=== PATIENT | male | born 1975 | race Caucasian/White ===

== ENCOUNTER 2017-08-01 11:55 | Day surgery (SDC) | payer BC ==
--- NOTE | 2017-03-13 21:05 | HP ---
HISTORY AND PHYSICAL: DATE OF SURGERY/ADMISSION: 03/21/17 SURGEON: Fern Ramesh MD * (DICTATED BY VANIA ISAAC) PROCEDURES: Right knee arthroscopy with partial medial meniscectomy, possible chondroplasty, possible synovectomy. CHIEF COMPLAINT: Right knee pain. HISTORY OF PRESENT ILLNESS: Mr. Gaona is a 41-year-old gentleman with complaints of right knee pain, which started approximately 2 years ago, it has been getting progressively worse, especially over the last 6 months. It is associated with catching, locking and popping along the medial joint line and an MRI of the right knee shows a postero-medial meniscal tear as well as some mild patellofemoral arthritis. He has elected to proceed with the right knee arthroscopy with partial medial meniscectomy, possible chondroplasty and possible synovectomy. PAST MEDICAL HISTORY: 1. Diabetes. 2. Hypothyroidism. 3. Sleep apnea. PAST SURGICAL HISTORY: 1. Gastric bypass. 2. Right carpal tunnel release. CURRENT MEDICATIONS: 1. Gabapentin 400 mg twice a day. 2. Wellbutrin. 3. Vitamin D3. 4. Metformin 500 mg daily. 5. Naproxen 500 mg twice daily as needed. 6. Fluoxetine 40 mg daily. 7. Levothyroxine 175 mcg daily. ALLERGIES: To PENICILLIN and AMBIEN. FAMILY HISTORY: Diabetes and hypertension. SOCIAL HISTORY: He is a 41-year-old gentleman, who lives with his . He is a high school chemistry teacher. He denies use of smoking, drugs or alcohol. He did quit tobacco in 2006. REVIEW OF SYSTEMS: A complete 14-point review of systems is reviewed with the patient, and it was positive for diabetes and thyroid disease. He denies history of DVT, PE or anesthesia problems. PHYSICAL EXAMINATION GENERAL: He is a well-nourished male, in no acute distress. VITAL SIGNS: He stands 5 feet 8 inches tall, weighs 245 pounds. His blood pressure is 123/83, his heart rate is 80. HEENT: Normocephalic, atraumatic. NECK: Supple. No palpable lymph nodes. PULMONARY: Lungs are clear to auscultation bilaterally. CARDIAC: Regular rate and rhythm. Strong S1 and S2. ABDOMEN: Soft, nontender, nondistended. NEUROLOGIC: He is alert and oriented x3. Cranial nerves II through XII are intact. MUSCULOSKELETAL: Right lower extremity, skin is intact. There are no open wounds or abrasions. He is tender to palpation along the medial joint line and MCL, positive Apley's and Gurpreet's. 5 to 130 degrees of flexion with patellofemoral crepitus and pain. No varus or valgus instability. His lower extremity muscle group strengths are intact at 5/5. He has 2+ dorsalis pedis pulses and intact sensation. ASSESSMENT AND PLAN: Mr. Gaona is a 41-year-old gentleman with complaints of right knee pain and an MRI showed a right knee posteromedial meniscal tear. He has failed conservative management and has elected to proceed with a right knee arthroscopy with partial medial meniscectomy, possible chondroplasty, possible synovectomy. The surgery is scheduled for 03/21/[address] Ramesh discussed the risks and the benefits of the surgery at today's visit and all of his questions were answered. He will follow up with Dr. Ramesh 10 to 14 days after the surgery. VANIA ISAAC [id number]/[facility] #: [id number] MTDShweta
--- NOTE | 2017-07-18 11:46 | HP ---
HISTORY AND PHYSICAL: DATE OF SURGERY: 08/01/17 DATE OF OFFICE VISIT: 07/17/17 SURGEON: Fern Ramesh MD * (DICTATED BY VANIA ISAAC) PROCEDURE: Right knee arthroscopy with partial medial meniscectomy, possible chondroplasty, possible synovectomy. CHIEF COMPLAINT: Right knee pain. HISTORY OF PRESENT ILLNESS: Mr. Gaona is a 42-year-old gentleman with right knee pain secondary to medial meniscus tear. He has failed conservative management, elected to proceed with right knee arthroscopy. PAST MEDICAL HISTORY: 1. Diabetes. 2. Hypertension. 3. Hypothyroidism. 4. High cholesterol. 5. Depression. 6. Obesity. 7. Sleep apnea. PAST SURGICAL HISTORY: 1. Left carpal tunnel release. 2. Gastric bypass. CURRENT MEDICATIONS: 1. Gabapentin 400 mg twice daily. 2. Levothyroxine 175 mcg a day. 3. Fluoxetine 40 mg a day. 4. Naproxen 500 mg twice daily. 5. Metformin 500 mg every day. 6. Vitamin D3. 7. Buspirone. 8. Lipitor. ALLERGIES: PENICILLIN and AMBIEN. FAMILY HISTORY: Diabetes, stroke, heart disease, and seizure. SOCIAL HISTORY: He is a 42-year-old gentleman. He lives with his . He drives a school bus. He does not smoke, use drugs or alcohol. REVIEW OF SYSTEMS: A complete 14-point review of systems was reviewed with the patient, was positive for hypothyroidism and diabetes. He denies a history of DVT, PE, hepatitis C, HIV, or anesthesia problems. PHYSICAL EXAMINATION GENERAL: He is well developed, well nourished, in no acute distress. VITAL SIGNS: He stands 5 feet 8 inches tall, weighs 260 pounds. His blood pressure is 124/80, his rate is 80. HEENT: Normocephalic, atraumatic. NECK: Supple. No palpable lymph nodes. PULMONARY: Lungs are clear to auscultation. HEART: Regular rate and rhythm. Strong S1 and S2. ABDOMEN: Soft, nontender, nondistended. MUSCULOSKELETAL: Right lower extremity, the skin is intact. There are no open wounds or abrasions. He has some tenderness over the medial joint line. There is some mild effusion. Positive Apley's. Negative Joey's. 5 to 130 degrees of flexion. 2+ dorsalis pedis pulses. His lower extremity muscle group strengths are intact at 5/5, and he has intact sensation. ASSESSMENT AND PLAN: Mr. Gaona is a 42-year-old gentleman with complaints of right knee pain secondary to a medial meniscus tear. He has failed conservative management and elected to proceed with right knee arthroscopy with partial medial meniscectomy, possible chondroplasty, possible synovectomy. The surgery is scheduled for 08/01/[address] Ramesh discussed the risks and benefits of the surgery at today's visit and all of his questions were answered. He will follow up with Dr. Ramesh in 2 weeks after the surgery. VANIA ISAAC [id number]/[facility] #: [id number] MTDD
[~2017-08-01 11:55] MED LIST: Buffered Lidocaine 0.9% SYRIN* 5 ML/SYR SYRINGE INTRADERM ONE; Famotidine IV* 10 MG/ML 2 ML (20 mg) IV ONE
[2017-08-01] MEDS ORDERED: Clindamycin 900 MG IVPREMIX(* 900 MG/50 ML SDV IV ONE (12:11)
[2017-08-01] MEDS ORDERED: Famotidine IV* 10 MG/ML 2 ML (20 mg) ONE (12:11)
[2017-08-01] MEDS ORDERED: Ketorolac INJ* 30 MG/ML 1 ML VIAL ONE (12:19)
[2017-08-01] MEDS ORDERED: Dexamethasone IV* 4 MG/ML 1 ML (4 MG) ONE (12:19)
[2017-08-01] MEDS ORDERED: Propofol* 10 MG/ML 20 ML BTL IV PUSH ONE (12:19)
[2017-08-01] MEDS ORDERED: Midazolam* 1 MG/ML 10 ML VIAL (10 MG) ONE (12:19)
[2017-08-01] MEDS ORDERED: Ondansetron INJ* 2 MG/ML VIAL ONE (12:19)
[2017-08-01] MEDS ORDERED: fentaNYL* 50 MCG/ML 2 ML VIAL (100 MCG VIAL) ONE ×2 (12:19→13:16)
[2017-08-01] MEDS ORDERED: Lidocaine 2% PF * 5 ML VIAL ONE (12:19)
[2017-08-01] MEDS ORDERED: KETAMINE HCL* 50 MG/ML 10 ML VIAL ONE (12:19)
[2017-08-01] MEDS ORDERED: Bupivacaine 0.25% SDV* 30 ML ONE (12:24)
[2017-08-01] MEDS ORDERED: methylPREDNISolone ACETATE 80* 80 MG/ML 1 ML VIAL ONE (12:24)
[2017-08-01] MEDS ORDERED: oxyCODONE/Acetamin 5/325 MG* TAB PO PRN (12:36)
[2017-08-01] MEDS ORDERED: fentaNYL* 50 MCG/ML 2 ML VIAL (100 MCG VIAL) IV PRN (12:36)
[2017-08-01] MEDS ORDERED: Ondansetron INJ* 2 MG/ML VIAL IV PRN (12:36)
[2017-08-01] MEDS ORDERED: EPHEDrine (Pressors)* 50 MG/ML VIAL ONE (13:32)
[2017-08-01 15:31] VITALS: BP 126/81
--- NOTE | 2017-08-02 03:05 | OP ---
OPERATIVE REPORT: DATE OF OPERATION: 08/01/17 DATE OF : 71 SURGEON: Fern Ramesh MD REFRIGERATION MANAGER: VANIA Zarate Ms. did help throughout the procedure with preparation of the leg, wound retraction, manipul ation of the knee and wound closure. ANESTHESIOLOGIST: Dr. Solorio. ANESTHESIA: General. PRE-OP DIAGNOSES: Right knee pain with medial meniscal tear. POST-OP DIAGNOSES: Right knee medial meniscal tear and osteoarthritis of knee. OPERATIVE PROCEDURES: Right knee arthroscopy with partial medial meniscectomy and patellofemoral cho ndroplasty. ESTIMATED BLOOD LOSS: Less than 25 cc. COMPLICATIONS: None. SPECIMEN: None. BRIEF HISTORY/INDICATION: Mr. Gaona is a 42-year-old gentleman with chronic right knee pain due t o known medial meniscal tear. He tried to avoid surgery and had conservative treatment including phy sical therapy, activity modification, intra- articular injection, and anti-inflammatories. Due to co ntinued medial pain and mechanical symptoms, he elected to undergo right knee arthroscopy with partia l medial meniscectomy. Informed consent was obtained from the patient. He understood the risks of s urgery included but were not limited to bleeding, infection, damage to nearby structures, continued p ain, need for further surgery, retear of the meniscus, stroke, heart attack, blood clot and . He wished to proceed. INTRAOPERATIVE FINDINGS: Intraoperatively, the patient was noted to have linear type tear in the pos terior one-third of the medial meniscus. He was noted to have grade 3 Outerbridge cartilage changes involving deep fissures in both the medial and patellofemoral compartments. DESCRIPTION OF PROCEDURE: Mr. Gaona was identified in the preanesthesia unit. His right lower ext remity was marked as the correct operative side. Informed consent was signed and placed in the chart . The patient was taken to the operating room and placed under general anesthesia without difficulty . The right lower extremity was prepped and draped in the usual sterile fashion. Preop time-out was made to correctly identify the patient's side and site. Appropriate perioperative antibiotics were given within 1 hour of incision. A 1.5 cm anterolateral portal incision was made with a 15 blade and carried down through the capsule. Trocar was introduced. As soon as the light and water sources were turned on, there was immediate visualization of the suprapatellar pouch. A tour of the knee joint was performed. Suprapatellar lorenza ch had no obvious abnormality. There was grade 3 Outerbridge cartilage changes with deep cartilage f issures along the medial and lateral patellar facets with some frayed cartilage flaps. Medial gutter showed no obvious plica or loose body. Medial compartment showed grade 3 Outerbridge cartilage beltran ges of the medial femoral condyle with deep cartilage fissures. Posterior medial meniscus had a line ar type tear involving the posterior one-third of the medial meniscus. ACL and PCL were intact. The knee was placed in the lrpmlj-eb-teva position. No significant degenerative changes in the lateral c ompartment. No obvious lateral meniscal tear. Under direct visualization, a medial portal incision was made with a #15 blade. The probe was introdu kimberly and a second tour of the knee joint was performed. The posterior medial meniscus had a linear ty pe tear, which did displace anteriorly. Straight biter and shaver were used to perform partial medial meniscectomy in the white-red zone. The radiofrequency ablation wand was used to smooth the edge of the meniscus. The radiofrequency ablation wand was then used to smooth any cartilage flaps and fram e in the patellofemoral compartment. The knee was copiously irrigated with sterile saline. Instrume nts were removed. The incisions were closed using 3-0 nylon suture. Intra-articular injection of 80 mg Depo-Medrol and 6 cc of 0.25% Marcaine was placed in the knee joint. Patient's incisions were co braulio with Xeroform, 4x4's, and Webril. Dominguez wrap and cold pack were placed over this. Patient's anesthesia was reversed without difficulty. He was taken to the PACU in stable condition. Intended weightbearing will be weightbearing as tolerated. Intended DVT prophylaxis will be Coumadin with aspirin bridge. He will follow up in clinic in 2 weeks' time. [id number]/[facility] #: [id number]
== END 2017-08-01 15:31 | disposition home or self-care (01) ==
LOC: OR 11:55
PROVIDERS: ATTEND Orthopaedic Surgery Adult Reconstructive Orthopaedic Surgery
DX: M23.203 Derangement of unspecified medial meniscus due to old tear or injury, right knee (principal); M17.11 Unilateral primary osteoarthritis, right knee; E11.9 Type 2 diabetes mellitus without complications; Z79.84 Long term (current) use of oral hypoglycemic drugs; E03.9 Hypothyroidism, unspecified; F41.8 Other specified anxiety disorders; E78.00 Pure hypercholesterolemia, unspecified
CPT/HCPCS: J1040; J1100; J1885; J2250; J2405; J2704; J3010

== ENCOUNTER 2018-02-04 07:21 | Day surgery (SDC) | payer BC ==
--- NOTE | 2018-01-29 11:51 | HP ---
AMENDED REPORT NOW INCLUDES COSIGNER DESIGNATION - ESIGNED BEFORE ADJUSTMENTS PREOPERATIVE HISTORY AND PHYSICAL: DATE OF SURGERY/ADMISSION: 02/04/18 DATE OF OFFICE VISIT/ENCOUNTER: 01/15/18 ATTENDING SURGEON: Yenni Hilario MD * (DICTATED BY VANIA HENRIQUEZ) PROCEDURE: Left long finger trigger release, left wrist carpal tunnel release. CHIEF COMPLAINT: Left long finger triggering, numbness and tingling, left hand. HISTORY OF PRESENT ILLNESS: This is a 42-year-old male who underwent a left carpal tunnel release back in 2012. He is unsure whether he ever got full resolution of symptoms; however, he has had numbness and tingling in the hand noticeable over the past couple of years that is persistent. He is also complaining of left long finger triggering that has been ongoing for over 2 years. He has received cortisone injection for both of these problems; however , they did provide him with some relief from the carpal tunnel symptoms and the trigger finger symptoms; however, both problems recurred. He is interested in pursuing surgical intervention at this time for both the left long finger trigger and the left carpal tunnel syndrome. PAST MEDICAL HISTORY: 1. Back pain. 2. Sleep apnea with CPAP. 3. Diabetes. 4. Hypothyroidism. 5. Hypercholesterolemia. 6. Anxiety/depression. PAST SURGICAL HISTORY: 1. Gastric bypass in 2012. 2. Left carpal tunnel release in 2012. 3. Right knee arthroscopy. CURRENT MEDICATIONS: 1. Atorvastatin calcium 10 mg daily. 2. Buspirone HCL 5 mg daily. 3. Fluoxetine HCL 40 mg daily. 4. Levothyroxine sodium 175 mcg daily. 5. Metformin HCL ER 500 mg daily. 6. Naproxen 500 mg b.i.d. 7. Vitamin D3 5000 units daily. ALLERGIES: AMBIEN and PENICILLIN causes hives and shakes. FAMILY MEDICAL HISTORY: Diabetes, heart disease. 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 He is a former smoker, he quit in 2006. Prior to that, he was smoking up to 3 packs per day since age 10. Denies recreational drug use. Does not drink alcohol. REVIEW OF SYSTEMS: General: Negative for fevers, chills or night sweats, unexplained weight loss/gain, no known anesthesia problems in the past. HEENT: Negative for headache, lightheadedness, syncopal episodes, visual changes. Integumentary: Negative for abrasions, lesions, or open wounds. Cardiothoracic : Negative for hypertension, chest pain, palpitations, edema. Respiratory: Negative for shortness of breath with exertion, chronic cough, wheezing. GI: Negative for nausea, vomiting, diarrhea, constipation, GERD. : Negative for nocturia, urinary frequency, urgency, history of UTIs, kidney problems. Musculoskeletal: Positive for current complaint. Positive for intermittent back pain. Neurological: Negative for history of seizure, stroke, poor balance. Endocrine: Positive for diabetes and thyroid issues. Hematologic: Negative for easy bruising, anemia, bleeding disorders, history of DVT. Infectious Disease: Negative for history of MRSA, hepatitis C, HIV. PHYSICAL EXAM: GENERAL: Well-developed, well-nourished 42-year-old male in no acute distress. VITAL SIGNS: Height 5 feet 8 inches, weight 247 pounds, pulse rate 68, blood pressure 128/74. HEENT: Normocephalic, atraumatic. Pupils are equal, round, and reactive to light and accommodation. Extraocular movements are intact. Throat is clear. NECK: Supple. No palpable lymph nodes. PULMONARY: Lungs are clear to auscultation bilaterally. No wheezes, rales, or rhonchi. CARDIOVASCULAR: Regular rate and rhythm. S1, S2. No murmurs, rubs, or gallops. No edema. ABDOMEN: Positive bowel sounds, soft, nontender. MUSCULOSKELETAL: On exam of his left hand, he has a positive Tinel's sign at the carpal tunnel and a positive Phalen's test. Decreased sensation in the median nerve distribution to light touch. Tenderness at the A1 trace at the middle finger. He has full motion of the fingers but there is a clicking of the long finger with range of motion. NEUROLOGICAL: Alert and oriented x3. Cranial nerves II through XII are intact. IMPRESSION: Left carpal tunnel syndrome, left long finger trigger finger. PLAN: The patient is scheduled to undergo a left long finger trigger finger release and a left wrist carpal tunnel release with Dr. Hilario on 02/04/18. He will return to the office 10 days postop for followup and suture removal. A prescription for Ultracet was e-scribed to the patient's pharmacy for postoperative pain management. VANIA HENRIQUEZ [id number]/[facility] #: [id number] [facility]
[~2018-02-04 07:21] MED LIST changes: -Famotidine IV* 10 MG/ML 2 ML (20 mg) IV ONE
[2018-02-04] MEDS ORDERED: fentaNYL* 50 MCG/ML 2 ML VIAL (100 MCG VIAL) ONE (08:54)
[2018-02-04] MEDS ORDERED: Midazolam* 1 MG/ML 2 ML VIAL (2 MG) ONE (08:55)
[2018-02-04] MEDS ORDERED: Propofol* 10 MG/ML 20 ML BTL IV PUSH ONE (10:03)
[2018-02-04] MEDS ORDERED: Naloxone* 0.4 MG/ML 1 ML VIAL IV PRN (10:18)
[2018-02-04] MEDS ORDERED: Lidocaine 1% INJ* 10 MG/ML 30 ML SDV ONE (10:44)
[2018-02-04 10:45] VITALS: BP 108/52
--- NOTE | 2018-02-05 06:26 | OP ---
DATE OF OPERATION: 02/04/18 [facility] DATE OF : 71 SURGEON: Dr. Hilario. PERFUSIONIST: VANIA Monique ANESTHESIA: Local MAC. PRE-OP DIAGNOSES: Left long finger trigger finger and left carpal tunnel syndrome. POST-OP DIAGNOSES: Left long finger trigger finger and left carpal tunnel syndrome. OPERATIVE PROCEDURE: Left long finger trigger release and carpal tunnel release. ESTIMATED BLOOD LOSS: Zero. TOURNIQUET TIME: About 15 minutes. INDICATIONS FOR PROCEDURE: Mk is a 42-year-old man with clicking and locking of his left long finger and numbness and tingling in his left median nerve distribution. He presents for left carpal tunnel release and left long finger trigger release. DESCRIPTION OF PROCEDURE: The patient was brought to the operating room, was given a sedation anesthetic and a local infiltration of total of 10 cc of 1% plain lidocaine in the palm of his left hand. The skin of his left hand and forearm was prepped and draped in the usual sterile fashion. The hand and forearm were exsanguinated and the tourniquet elevated to 250 mmHg. A transverse incision was made centered over the A1 trace of the long finger. We dissected bluntly through the subcutaneous tissue down to the A1 trace. The trace was incised longitudinally and completely released the flexor tendons especially the flexor digitorum superficialis was quite abraded but still intact. The FDP tendon was completely intact. The wound was irrigated and skin edges reapproximated with 4-0 nylon suture. Next, a longitudinal incision was made in the palm in line with the ring finger. We dissected sharply through the subcutaneous tissue down to the transverse carpal ligament. The ligament was divided sharply with a knife and then more proximally with the scissors. The nerve was dissected free from the surrounding tissue and there was an area of moderate compression in the mid portion of the ligament. The nerve was somewhat adherent to the overlying transverse carpal ligament as well and was debrided away from that. The wound was irrigated and the skin edges reapproximated with 4-0 nylon suture. The wounds were dressed with Xeroform, 4x4, Webril, and an Dominguez wrap. The patient tolerated the procedure well and was brought to the recovery room in good condition. [id number]/[facility] #: [id number] [facility]
== END 2018-02-04 11:00 | disposition home or self-care (01) ==
LOC: OREAST 07:21
PROVIDERS: ATTEND Orthopaedic Surgery
DX: G56.02 Carpal tunnel syndrome, left upper limb (principal); M65.332 Trigger finger, left middle finger; E11.9 Type 2 diabetes mellitus without complications; Z79.84 Long term (current) use of oral hypoglycemic drugs; E03.9 Hypothyroidism, unspecified; G47.33 Obstructive sleep apnea (adult) (pediatric); E78.00 Pure hypercholesterolemia, unspecified; F41.8 Other specified anxiety disorders
CPT/HCPCS: J2250; J2704; J3010

== ENCOUNTER 2018-07-01 09:52 | Emergency (ER) | payer BC ==
--- OUTSIDE RECORDS SUMMARY | 2018-07-01 10:38 | XMS REPORT ---
:1975 External Reference #:[id number] Author Organization [facility] Address [address] [place] [address] [place] [address] Phone [phone] Care Team Providers Name Role Phone Claudio Hollins MD Primary Care Physician Unavailable Payers Type Date Identification Numbers Payment Provider Subscriber Commercial Effective: Policy Number: BS [employer] 2017 [id number] PayID: [id number] [address] [address] HARSHIL Leong [address] Medigap Part B Effective: 2016 Policy Number: BS Of [place] [employer] [id number] Expires: 2017 Group Number: [id number] [address] [address] PayID: [id number] HARSHIL Leong [address] Problems Date Description Provider Status Onset: 10/10/2016 Traumatic brain injury Dulce Higuera MD Active Onset: 03/11/2017 Localized, primary osteoarthritis Fern Ramesh M.D. 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 Active AND/OR meniscus of knee Onset: 11/13/2017 Ot symptoms and signs w cognitive Dulce Higuera MD Active functions and awareness Onset: 11/13/2017 Recurrent major depressive Dulce Higuera MD Active episodes Onset: 11/13/2017 Anxiety state Dulce Higuera MD Active Onset: 03/12/2018 Type 2 diabetes mellitus Claudio Hollins M.D. Active Onset: 03/12/2018 Mixed hyperlipidemia Claudio Hollins M.D. Active Onset: 03/12/2018 Hypothyroidism Claudio Hollins M.D. Active Onset: 03/12/2018 Abnormal weight gain Claudio Hollins M.D. Active Onset: 03/12/2018 Genital herpes simplex Claudio Hollins M.D. Active Onset: 06/18/2018 Obstructive sleep apnea syndrome Claudio Hollins M.D. Active Onset: 05/13/2013 Preoperative cardiovascular Yenni York D.O. Resolved examination Resolved: 06/06/2018 Onset: 10/10/2016 Syncope and collapse Dulce Higuera MD Resolved Resolved: 06/06/2018 Onset: 03/11/2017 Radial tear of medial meniscus Fern Ramesh M.D. 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 Started when he was 10. Recreational Drug Use Denies Drug Use Daily Caffeine Consumes on average 4 cups of decaff coffee per day Exercise Type/Frequency Exercises sporadically General Hx Text 1 daughter from prior relationship. Allergies, Adverse Reactions, Alerts Date Description Reaction Status Severity Comments 05/13/2013 Penicillin active Hives 05/13/2013 Ambien severe shakes active Shakes Medications Medication Date Status Form Strength Qnty SIG Indications Ordering Provider Melanie 06/13/ Active Tablets 5mg 45tabs 0.5 Renzo Warren tablet by pebbles Arias M.D. every day Levothyroxine / Active Tablets 175mcg 30tabs once [place] Sodium 0000 every day Melanie Hollins Fluoxetine HCL / Active Capsules 40mg 30caps once Claudio 0000 every day Melanie Hollins Metformin HCL 00/00/ Active Tablets ER 500mg 90tabs one tab Kole ER (Mod) 0000 24HR every day John Fabian, by mouth M.DDawson,FACP Vitamin D3 / Active Tablets 5000Unit once Unknown Complete 0000 daily Atorvastatin 00/ Active Tablets 10mg 30tabs take one [place] Calcium 0000 tablet by Gunjan, mouth M.D. every day Buspirone HCL / Active Tablets 5mg 90tabs 1 tablet Kole 0000 daily John Fabian M.D.,FACP Famciclovir 03/12/ Hx Tablets 500mg 21tabs 3 times a A60.00 Claudio 2017 - day Pachikara, 05/19/ M.D. 2018 Tramadol 01/15/ Hx Tablets 37.5-325mg 15tabs 1 tab by Yenni Hydrochloride/A 2018 - mouth Hilario, cetaminophen 05/19/ every 4-6 M.D. 2018 hours as needed pain. Do not take until after surgery Meloxicam 01/03/ Hx Tablets 15mg 30tabs 1 by M25.461 Fern 2017 - mouth Gadiel, 05/19/ every day M.D. 2018 Oxycodone-Aceta 08/01/ Hx Tablets 5-325mg 45tabs 1 tabs by Fern valdivia 2016 - mouth Gadiel, 10/24/ every 4-6 M.D. 2018 hours as needed for pain Aspirin 08/01/ Hx Tablets 325mg 14tabs take 1 by Fern 2016 - mouth Gadiel, 08/13/ once a M.D. 2018 day for two weeks Atorvastatin 05/08/ Hx Tablets 10mg 90tabs 1 by Renzo Calcium 2017 - mouth F. Mauser, 11/12/ every day M.D. 2018 Gabapentin 10/10/ Hx Capsules 400mg 1 by [id number] Edward 2017 - mouth MD Paige 05/05/ four 2017 times a day Gabapentin 12/08/ Hx Capsules 300mg 60caps take 1 at M54.16 Edward 2016 - bedtime MD Paige 10/10/ for nerve 2017 pain Naproxen 04/28/ Hx Tablets 500mg 60tabs 1 tablet M17.11 Fern 2014 - q12 hours Gadiel, 12/07/ as needed Melanie 2016 pain Metoprolol 08/13/ Hx Tablets 50mg 60tabs take one Yenni Tartrate 2014 - tablet by Chela, 11/03/ mouth D.O. 2014 twice a day Janumet 05/13/ Hx Tablets 50-500mg 1 po bid Other 2012 - Ordering 11/03/ Provider 2015 Levothyroxine 05/13/ Hx Tablets 25mcg 60tabs 1 1/ Other Sodium 2012 - tablets Ordering 12/07/ po qd Provider 2016 Fenofibrate 05/13/ Hx Capsules 43mg Other 2012 - Ordering 11/03/ Provider 2015 Celexa 05/13/ Hx Tablets 40mg 90tabs 1 po qd Other 2012 - Ordering 11/03/ Provider 2015 Metoprolol 05/13/ Hx Tablets 25mg 120tab 2 po Other Tartrate 2013 - s every Ordering 08/13/ morning, Provider 2014 2 po every evening. Vitamin D 05/13/ Hx Tablets 5000Unit 1 po Other 2012 - daily Ordering 12/07/ Provider 2016 Multivitamins 05/13/ Hx Capsules 30caps 1 capsule Other 2012 - daily Ordering 12/07/ Provider 2016 Cymbalta / Hx Caps DR 20mg 1 by Unknown 0000 - Part mouth 03/14/ every day 2014 Paxil 00/ Hx Tablets 10mg 1 by Unknown 0000 - mouth 12/07/ every day [address] 00/ Hx Tablets DR 500mg bid Unknown 0000 - 2017 Vitamin D3 00/ Hx Tablets 5000mg once Unknown 0000 - daily 2017 Buspirone HCL 00/ Hx Tablets 20mg bid Unknown 0000 - 2016 Tramadol HCL 00/ Hx Tablets 50mg Take 1 2 Unknown 0000 - Tablets 05/05/ By Mouth 2016 Every 6 Hours as Needed Maximum Daily Dose Gabapentin 00/ Hx Capsules 400mg take one Unknown 0000 - capsule 10/24/ by mouth 2017 two times a day Buspirone HCL 00/00/ Hx Tablets 10mg Take One Unknown 0000 - Tablet By 09/17/ Mouth 2016 Twice A Day Medications Administered in Office Medication Date Status Form Strength Qnty SIG Indications Ordering Provider Depomedrol Administered Injection Fern 40MG 018 Melanie Ramesh Depomedrol 05/25/2 Administered Injection Fern 40MG 018 Melanie Ramesh Depomedrol Administered Injection Fern 80MG 015 Melanie Ramesh Depomedrol Administered Injection Yenni 80MG 015 Melanie Hilario Immunizations CPT Code Status Date Vaccine Lot # [id number] Given 06/18/2018 Pneumonia Vaccine [id number] Given 04/23/2018 Influenza Virus Vaccine, Quadrivalent, Split, Preservative Free Vital Signs Date Vital Result Comment 06/18/2018 Height 67.25 inches 5'7.25" Weight 244.00 lb Heart Rate 88 /min BP Systolic Sitting 139 mmHg BP Diastolic Sitting 81 mmHg O2 % BldC Oximetry 96 % BMI (Body Mass Index) 37.9 kg/m2 05/20/2018 Height 67.25 inches 5'7.25" Weight 243.00 lb Heart Rate 76 /min BP Systolic Sitting 118 mmHg left arm lg cuff BP Diastolic Sitting 72 mmHg left arm lg cuff BMI (Body Mass Index) 37.8 kg/m2 Ejection Fraction 55-60% echo 11/08/16 03/26/2018 Height 67.25 inches 5'7.25" Weight 260.00 lb Heart Rate 70 /min BP Systolic 124 mmHg BP Diastolic 68 mmHg Respiratory Rate 12 /min Pain Level 0 BMI (Body Mass Index) 40.4 kg/m2 03/12/2018 Height 67.25 inches 5'7.25" Weight 250.50 lb Heart Rate 86 /min BP Systolic 133 mmHg BP Diastolic 83 mmHg Body Temperature 97.9 F O2 % BldC Oximetry 96 % BMI (Body Mass Index) 38.9 kg/m2 02/13/2018 Height 68 inches 5'8" Heart Rate 88 /min BP Systolic 122 mmHg BP Diastolic 62 mmHg Respiratory Rate 16 /min Body Temperature 98.0 F Pain Level 2 01/15/2018 Height 68 inches 5'8" Weight 247.00 lb Heart Rate 68 /min BP Systolic 128 mmHg BP Diastolic 74 mmHg Respiratory Rate 12 /min Body Temperature 97.5 F BMI (Body Mass Index) 37.6 kg/m2 01/03/2018 Height 68 inches 5'8" Weight 258.00 lb BP Systolic 132 mmHg BP Diastolic 80 mmHg Respiratory Rate 18 /min Pain Level 4 BMI (Body Mass Index) 39.2 kg/m2 11/13/2017 Height 68 inches 5'8" Weight 258.00 lb Heart Rate 70 /min BP Systolic 130 mmHg BP Diastolic 92 mmHg BMI (Body Mass Index) 39.2 kg/m2 10/25/2017 Height 68 inches 5'8" Weight 250.00 lb BP Systolic 107 mmHg BP Diastolic 74 mmHg Respiratory Rate 15 /min Pain Level 0 BMI (Body Mass Index) 38.0 kg/m2 08/14/2017 Height 68 inches 5'8" Weight 260.00 lb per pt Heart Rate 80 /min reg BP Systolic Sitting 114 mmHg Lue, lg cuff BP Diastolic Sitting 70 mmHg Lue, lg cuff Respiratory Rate 16 /min Pain Level 0 BMI (Body Mass Index) 39.5 kg/m2 07/17/2017 Height 68 inches 5'8" Weight 260.00 lb Heart Rate 80 /min BP Systolic 124 mmHg BP Diastolic 80 mmHg Respiratory Rate 14 /min Body Temperature 98.6 F Pain Level 10 BMI (Body Mass Index) 39.5 kg/m2 05/08/2017 Height 68 inches 5'8" Weight 246.00 lb w/shoes Heart Rate 100 /min BP Systolic Sitting 118 mmHg lue reg cuff BP Diastolic Sitting 76 mmHg lue reg cuff Respiratory Rate 18 /min BMI (Body Mass Index) 37.4 kg/m2 Ejection Fraction 55-60% echo 10/12/16 05/06/2017 Height 68 inches 5'8" Weight 244.12 lb BP Systolic 138 mmHg BP Diastolic 88 mmHg BMI (Body Mass Index) 37.1 kg/m2 03/11/2017 Height 68 inches 5'8" Weight 244.00 lb Heart Rate 80 /min BP Systolic 123 mmHg BP Diastolic 83 mmHg BMI (Body Mass Index) 37.1 kg/m2 10/25/2016 Height 68 inches 5'8" Weight 243.00 lb with shoes Heart Rate 102 /min BP Systolic Sitting 112 mmHg LA lrg cuff BP Diastolic Sitting 70 mmHg LA lrg cuff BMI (Body Mass Index) 36.9 kg/m2 10/10/2016 Height 68 inches 5'8" Weight 239.00 lb Heart Rate 80 /min BP Systolic Sitting 110 mmHg BP Diastolic Sitting 68 mmHg Respiratory Rate 17 /min BMI (Body Mass Index) 36.3 kg/m2 12/09/2015 Height 68 inches 5'8" Weight 246.00 lb Heart Rate 78 /min BP Systolic Sitting 110 mmHg BP Diastolic Sitting 80 mmHg Pain Level 5 can go to 7 BMI (Body Mass Index) 37.4 kg/m2 06/13/2015 Height 68 inches 5'8" Weight 218.00 lb Pain Level 4 BMI (Body Mass Index) 33.1 kg/m2 04/28/2015 Height 68 inches 5'8" Weight 218.00 lb Pain Level 5 BMI (Body Mass Index) 33.1 kg/m2 04/14/2015 Height 68 inches 5'8" Weight 218.00 lb Pain Level 5 BMI (Body Mass Index) 33.1 kg/m2 11/04/2014 Height 68 inches 5'8" Weight 218.00 lb Heart Rate 73 /min BP Systolic 122 mmHg BP Diastolic 78 mmHg Pain Level 6 BMI (Body Mass Index) 33.1 kg/m2 08/13/2013 Height 64 inches 5'4" Weight 261.75 lb Heart Rate 92 /min BP Systolic Sitting 118 mmHg BP Diastolic Sitting 70 mmHg BMI (Body Mass Index) 44.9 kg/m2 05/13/2013 Height 64 inches 5'4" Weight 267.00 lb Heart Rate 88 /min Regular BP Systolic Sitting 104 mmHg BP Diastolic Sitting 84 mmHg BMI (Body Mass Index) 45.8 kg/m2 Results Test Date Test Result H/L Range Note Lipid Profile (Trig/Chol/HDL) 05/19/2018 Triglycerides 116 mg/dL 1 Cholesterol 113 mg/dL 2 HDL Cholesterol 33.8 mg/dL 3 LDL Cholesterol 56 mg/dL 4 Urine Microalbumin Random 05/19/2018 Ur Microalbumin (mg/L) < 15.0 Urine Creatinine 280.47 mg/dL Urine Microalbumin/Creatinine TNP <31 5 Laboratory test finding 05/19/2018 TSH (Thyroid Stim Horm) 1.39 mcIU/mL 0.34-5.60 6 Comp Metabolic Panel 05/19/2018 Sodium 139 mmol/L 135-145 Potassium 4.2 mmol/L 3.5-5.0 Chloride 104 mmol/L 101-111 Co2 Carbon Dioxide 27 mmol/L 22-32 Anion Gap 8 mmol/L 2-11 Glucose 128 mg/dL High 70-100 Blood Urea Nitrogen 25 mg/dL High 6-24 Creatinine 0.75 mg/dL 0.67-1.17 BUN/Creatinine Ratio 33.3 High 8-20 Calcium 9.3 mg/dL 8.6-10.3 Total Protein 6.8 g/dL 6.4-8.9 Albumin 4.4 g/dL 3.2-5.2 Globulin 2.4 g/dL 2-4 Albumin/Globulin Ratio 1.8 1-3 Total Bilirubin 0.50 mg/dL 0.2-1.0 Alkaline Phosphatase 76 U/L 34-104 Alt 25 U/L 7-52 Ast 23 U/L 13-39 Egfr Non- 113.1 >60 Egfr 136.9 >60 7 Laboratory test finding 02/04/2018 Point of Care Glucose 140 mg/dL High 70 -100 8 Laboratory test finding 08/01/2017 Point of Care Glucose 121 mg/dL High 70 -100 9 Laboratory test finding 08/01/2017 Point of Care Glucose 110 mg/dL High 70 -100 10 1 Desirable: <150 Borderline High: 150-199 High: 200-499 Very High: >500 2 Desirable: <200 Borderline High: 200-239 High: >239 3 Low: <40 Desirable: 40-60 High: >60 4 Desirable: <100 Near Optimal: 100-129 Borderline High: 130-159 High: 160-189 Very High: >189 5 Unable to calculate due to low microalbumin 6 FASTING 10 HOUR 7 Because ethnic data is not always readily available, this report includes an eGFR for both -Americans and non- Americans. The National Kidney Disease Education Program (NKDEP) does not endorse the use of the MDRD equation for patients that are not between the ages of 18 and 70, are , have extremes of body size, muscle mass, or nutritional status, or are non- or non-. According to the National Kidney Foundation, irrespective of diagnosis, the stage of the disease is based on the level of kidney function: Stage Description GFR(mL/min/1.73 m(2)) 1 Kidney damage with normal or decreased GFR 90 2 Kidney damage with mild decrease in GFR 60-89 3 Moderate decrease in GFR 30-59 4 Severe decrease in GFR 15-29 5 Kidney failure <15 (or dialysis) 8 Wire Technician: [id number] Wire Technician: [id number] Wire Technician: [id number] Procedures Date CPT Code Description Status 05/20/2018 42728 EKG Tracing & Interpretation Completed 02/04/2018 98223 Carpal Tunnel Release Completed 02/04/2018 83373 Carpal Tunnel Release Completed 02/04/2018 29235 Trigger Finger Release Incision / Tendon Sheath Completed Incision 02/04/2018 79421 Trigger Finger Release Incision / Tendon Sheath Completed Incision 01/03/2018 24640 Inject/Drain Joint/Bursa Major W/O US Completed 08/01/2017 30418 Arthroscopy,Knee,Meniscectomy Medial Or Lateral Completed 08/01/2017 67973 Arthroscopy,Knee,Meniscectomy Medial Or Lateral Completed 05/08/2017 78186 EKG Tracing & Interpretation Completed 03/26/2017 06961 ECHO Stress Test Incl Perf Contiuous ekg Monitoring Completed W/Phys Superv 12/04/2016 13776 EEG Recording Awake & Asleep Completed 11/14/2016 39231 Holter Monitor Review (24 hr)dr review & interp only Completed 11/12/2016 46387 ECG Monitor/Recording W/Visual Superimposition Scanning Completed 11/08/2016 11110 ECHO Transthoracic, Real-Time 2D With Doppler And Color Completed Flow 10/25/2016 44678 EKG Tracing & Interpretation Completed 04/28/201572235 Inject/Drain Joint/Bursa Major W/O US Completed 11/04/2014 43059 Inject Tendon Sheath Or Ligament Aponeurosis Eg Plantar Completed Fascia 11/04/2014 Injection, Carpal Tunnel Completed 05/26/2013 11487 Treadmill Interp/Report Only Completed 05/26/2013 03628 Stress Test Supervsn W/Out I/R Completed 05/13/2013 87946 EKG Tracing & Interpretation Completed Encounters Type Date Location Provider CPT E/M Dx Office Visit 05/20/2018 10:40a [facility] Renzo Sosa, 65903 E11.9 Melanie R53.83 E78.00 R94.31 Office Visit 03/12/2018 3:20p [facility] Claudio Hollins, 13999 E11.9 - Chelo Navarro E78.2 E03.9 F33.0 R63.5 A60.00 Office Visit 01/15/2018 9:45a [facility] Yenni Hilario, 25620 M65.332 Of Humberto Navarro G56.02 Office Visit 01/03/2018 10:45a [facility] Fern Ramesh M.D. 70573 M17.0 C.M.A. M25.561 M25.562 M25.461 M25.462 Office Visit 11/13/2017 4:00p [facility] [place] [address] R55 R41.89 F33.9 F41.9 Office Visit 05/08/2017 11:20a [facility] Renzo Sosa M.D. 44174 R55 R94.31 I10 E78.00 E11.9 Office Visit 05/06/2017 10:30a [facility] [address] R55 S06.2x4S R45.89 Office Visit 03/11/2017 9:45a [facility] Fern Ramesh M.D. 79950 M25.561 C.M.A. M25.461 M17.11 S83.241D Office Visit 10/25/2016 9:00a [facility] Renzo Sosa M.D. 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 31106 M76.31 C.M.A. M17.0 Office Visit 04/28/2015 10:00a [facility] Fern Ramesh M.D. 18896 715.16 Of C.M.A. Office Visit 04/14/2015 3:10p [facility] Yenni Hilario 21361 354.0 Of C.Marcelina Navarro 727.03 Office Visit 11/04/2014 11:00a [facility] Of Yenni Hilario 48377 354.0 C.MRashad Navarro 727.03 Office Visit 08/20/2013 2:19p [facility] Josh Liu 06991 278.01 Hospitalists Melanie Duron 250.00 401.9 244.9 Office Visit 08/19/2013 2:17p [facility], Jorge Moreau, 89855 278.01 Hospitalists Genaro 250.00 401.9 224.9 Office Visit 08/13/2013 11:00a [facility] Yenni York D.O. 25354 V72.81 401.1 250.00 Office Visit 05/13/2013 10:20a [facility] Yenni York D.O. 91022 V72.81 278.00 401.1 250.00 Plan of Care Future Appointment(s):09/24/2018 11:00 am - Claudio Hollins M.D. at [facility]06/18/2018 - Claudio Hollins M.D.Z00.01 Encounter for general adult medical exam w abnormal findingsComments:You should have yearly Flu shot and T dap every 10 years. Exercise 30mts/day 5 times a week ,Use sun screen, to prevent skin cancer discussed.Self testicular exam once a month during shower to feel for lumps or kfpkbU23.9 Type 2 diabetes mellitus without complicationsNew Labs:Hemoglobin A1c (Glyco HGB)Comments:You are meeting goal for blood sugar control. A yearly eye exam need to be done.Follow up:3 months, 20 minGoals:Goal Hemoglobin A1c is less than 7.0%. Goal Blood pressure is less than 140/90. Goal LDL (bad cholesterol) is less than 70.G47.33 Obstructive sleep apnea (adult) (pediatric)Comments:Need to repeat sleep studies
[2018-07-01 10:47] VITALS: BP 128/85
--- NOTE | 2018-07-01 10:57 | UC ---
Respiratory Complaint HPI - HPI Summary HPI Summary: cough x 1 week productive cough , yellow sputum nasal congestion, pnd no fever, no chills, bilateral ear pain - History of Current Complaint Chief Complaint: UCRespiratory Stated Complaint: CONGESTION Time Seen by Provider: 07/01/18 10:48 Hx Obtained From: Patient Onset/Duration: Gradual Onset, Lasting Weeks - 1, Still Present Timing: Constant Severity Initially: Moderate Severity Currently: Moderate Pain Intensity: 3 Character: Cough: Productive Aggravating Factors: Exertion, Deep Breaths Alleviating Factors: Nothing Associated Signs And Symptoms: Positive: Wheezing, Calf Swelling, URI, Nasal Congestion. Negative: Dyspnea, Fever, Chills, Hoarseness, Sinus Discomfort - Allergies/Home Medications Allergies/Adverse Reactions: Allergies Allergy/AdvReac Type Severity Reaction Status Date / Time amoxicillin Allergy Pruritic Verified 07/01/18 10:46 Rash Penicillins Allergy Rash and Verified 07/01/18 10:46 Shakes zolpidem Allergy Hallucinati Verified 07/01/18 10:46 ons Home Medications: Home Medications Cholecalciferol TAB* [Vitamin D TAB*] 5,000 unit PO DAILY 07/01/18 [History Confirmed 07/01/18] Dm/Acetaminophen/Doxylamine [Vicks Nyquil Cold & Flu N] 1 liq PO SEE INSTRUCTIONS PRN 07/01/18 [History Confirmed 07/01/18] FLUoxetine CAP* [PROzac CAP*] 40 mg PO DAILY 07/01/18 [History Confirmed ] Guaifen/Dextromethorphan/PE [Mucinex Fast-Max Severe C 5-10-200 mg] 1 tab PO SEE INSTRUCTIONS PRN 07/01/18 [History Confirmed 07/01/18] Levothyroxine TAB* [Synthroid TAB*] 175 mcg PO DAILY 07/01/18 [History Confirmed 07/01/18] Metformin ER (NF) 500 mg PO DAILY 07/01/18 [History Confirmed 07/01/18] Rosuvastatin (NF) [Crestor (NF)] 5 mg PO DAILY 07/01/18 [History Confirmed 07/01] busPIRone TAB* [Buspar TAB*] 5 mg PO DAILY 07/01/18 [History Confirmed 07/01/18] PMH/Surg Hx/FS Hx/Imm Hx Endocrine History: Diabetes, Hypothyroidism Cardiovascular History: Hypertension - Surgical History Surgical History: Yes Surgery Procedure, Year, and Place: Right Knee Arthroscopy, 2016, [place]; Gastric Bypass, 2012, [place]; Left Carpal Tunnel, 2011, [place] - Family History Known Family History: Positive: Hypertension - Social History Alcohol Use: None Substance Use Type: None Smoking Status (MU): Former Smoker Type: Cigarettes Amount Used/How Often: smoked for 25 years 1-3ppd Length of Time of Smoking/Using Tobacco: 1-3 PPD x 25 Years Have You Smoked in the Last Year: No When Did the Patient Quit Smoking/Using Tobacco: 2006 - Immunization History Most Recent Influenza Vaccination: 06/2013 Most Recent Tetanus Shot: 4 YEARS AGO Most Recent Pneumonia Vaccination: HAS NEVER RECEIVED Review of Systems All Other Systems Reviewed And Are Negative: Yes Constitutional: Positive: Negative Skin: Positive: Negative Eyes: Positive: Negative ENT: Positive: Ear Ache, Nasal Discharge, Sinus Congestion, Sinus Pain/ Tenderness Respiratory: Positive: Cough Cardiovascular: Positive: Negative Gastrointestinal: Positive: Negative Is Patient Immunocompromised?: No Physical Exam Triage Information Reviewed: Yes Appearance: Well-Appearing, No Pain Distress, Well-Nourished Vital Signs: Initial Vital Signs Temp 97.9 F 07/01/18 10:42 Pulse 90 07/01/18 10:42 Resp 18 07/01/18 10:42 BP 128/85 07/01/18 10:42 Pulse Ox 96 07/01/18 10:42 Vital Signs Reviewed: Yes Eye Exam: Normal Eyes: Positive: Conjunctiva Clear ENT: Positive: Normal ENT inspection, Hearing grossly normal, Pharynx normal, Nasal congestion, Nasal drainage, TMs normal. Negative: Tonsillar swelling, Tonsillar exudate Neck exam: Normal Neck: Positive: Supple, Nontender, No Lymphadenopathy Respiratory: Positive: Chest non-tender, Lungs clear, Normal breath sounds, No respiratory distress, No accessory muscle use Cardiovascular: Positive: RRR, No Murmur, Pulses Normal UC Diagnostic Evaluation - Laboratory O2 Sat by Pulse Oximetry: 96 Respiratory Course/Dx - Differential Dx/Diagnosis Provider Diagnoses: viral Bronchitis Discharge - Sign-Out/Discharge Documenting (check all that apply): Patient Departure All imaging exams completed and their final reports reviewed: No Studies - Discharge Plan Condition: Stable Disposition: HOME Prescriptions: Codeine Phosphate/Guaifenesin [Cheratussin AC] 10 ml PO Q8H PRN #120 ml MDD 30 ml PRN Reason: Cough Patient Education Materials: Acute Bronchitis (ED) Referrals: Rhett Culp MD [Primary Care Provider] - If Needed Additional Instructions: Viral Bronchitis no need for antibiotics - Billing Disposition and Condition Condition: STABLE Disposition: Home
== END 2018-07-01 10:59 | disposition home or self-care (01) ==
LOC: UCCORT 09:52
DX: J20.8 Acute bronchitis due to other specified organisms (principal); E11.9 Type 2 diabetes mellitus without complications; I10 Essential (primary) hypertension; E03.9 Hypothyroidism, unspecified; Z88.0 Allergy status to penicillin; Z88.8 Allergy status to other drugs, medicaments and biological substances; Z79.899 Other long term (current) drug therapy; Z87.891 Personal history of nicotine dependence
CPT/HCPCS: 99212; G0463